=== PATIENT | female | born 1980 | race Caucasian/White ===

== ENCOUNTER 2022-04-14 11:28 | Emergency (ER) | payer MEDICAID, SELFPAY ==
[2022-04-14 11:26] VITALS: BP 136/96; PULSE 75; RESP 18; TEMP 37; O2SAT 98
--- NOTE | 2022-04-14 11:38 | ED.GENADUL_ITS ---
Discharge Plan Disposition Patient Disposition: Home Condition: Stable Discharge Details Clinical Impression: Neuropathy Primary Care Provider: Unknown,Unknown ED Provider: Ian Macedo Home Meds and New Rx's Prescriptions: New gabapentin 600 mg tablet 600 mg PO TID 15 Days Qty: 45 0RF duloxetine [Cymbalta] 60 mg capsule,delayed release(DR/EC) 60 mg PO DAILY 15 Days Qty: 15 0RF No Action trazodone 50 mg Tablet 100 mg PO HS PRN metoprolol tartrate 100 mg Tablet 100 mg PO DAILY duloxetine [Cymbalta] 60 mg Capsule,Delayed Release(Dr/Ec) 60 mg PO DAILY gabapentin 300 mg Tablet 600 mg PO TID folic acid 15 mg Tablet 0.4 mg PO DAILY zolpidem [Ambien] 10 mg Tablet 10 mg PO HS Discharge Instructions Instructions: Peripheral Neuropathy (ED) Medical Decision Making 41-year-old female presents after being released from police custody she was picked up last night while driving home to [place] her car was impounded herself and her medications are in the car she takes gabapentin 600 mg 3 times a day and Cymbalta. Nontoxic atraumatic ambulatory neurologically intact. Will fill prescription for patient's medication as her medications are likely to be impounded through the weekend. Will contact care management team to assist with transportation options HPI General Date/Time Provider Initiated Documentation: 04/14/22 11:31 . HPI Narrative: 41 yr old female history of peripheral neuropathy on gabapentin and Cymbalta presents requesting medication refill administration as she was arrested last night she was driving from [place] to meet somebody, was driving home yesterday evening and was arrested, her car was impounded and her medications and cell phone are still at the police department. They will not be able to be released today and possibly not tomorrow. Related Data Home Medications Medication Instructions Recorded Confirmed duloxetine 60 mg capsule,delayed 60 mg PO DAILY 04/14/22 04/14/22 release (Cymbalta) duloxetine 60 mg capsule,delayed 60 mg PO DAILY 15 days #15 caps 04/14/22 release (Cymbalta) folic acid 15 mg tablet 0.4 mg PO DAILY 04/14/22 04/14/22 gabapentin 300 mg tablet 600 mg PO TID 04/14/22 04/14/22 gabapentin 600 mg tablet 600 mg PO TID 15 days #45 tabs 04/14/22 metoprolol tartrate 100 mg tablet 100 mg PO DAILY 04/14/22 04/14/22 trazodone 50 mg tablet 100 mg PO HS PRN 04/14/22 04/14/22 zolpidem 10 mg tablet (Ambien) 10 mg PO HS 04/14/22 04/14/22 Previous Rx's Medication Instructions Recorded duloxetine 60 mg capsule,delayed 60 mg PO DAILY 15 days #15 caps 04/14/22 release (Cymbalta) gabapentin 600 mg tablet 600 mg PO TID 15 days #45 tabs 04/14/22 Allergies Allergy/AdvReac Type Severity Reaction Status Date / Time No Known Allergies Allergy Unverified 04/14/22 11:29 General Stated Complaint: RX Refill MARKIE: 4 Review of Systems Narrative: Review of Systems Constitutional: negative Eyes: negative ENT: negative Cardiovascular: negative Respiratory: negative Gastrointestinal: negative : negative Musculoskeletal: negative Skin: negative Neurologic: Peripheral neuropathy Psych: negative PFSH All Active Problems (Updated 04/14/22 @ 12:02 by Ian Macedo MD) Neuropathy (Acute) Social History Smoking/Tobacco Use Status: Current every day Tobacco Type: cigarettes Smoking risk assessment performed?: Yes Drug use: Never Substance use type: does not use Do you feel safe at home: Yes Do you feel safe in your relationship?: Yes Exam Narrative Exam Narrative: Physical Examination General: alert, awake, cooperative, resting comfortably, no acute distress HEENT: normocephalic, atraumatic; PERRL, EOM intact, conjunctiva normal; no nasal discharge; moist mucous membranes, oral and pharyngeal mucosa normal, tolerating secretions Neuro: AAOx3, normal speech, moving all extremities; ambulatory without assistance Psych: Appropriate mood and affect Course Vital Signs Vital signs: Vital Signs Temperature 37.0 C 04/14/22 11:26 Pulse 75 04/14/22 11:26 Respiratory Rate 18 04/14/22 11:26 Blood Pressure 136/96 H 04/14/22 11:26 Pulse Oximetry 98 04/14/22 11:26 Temperature 37.0 C 04/14/22 11:26 Temperature Source Skin 04/14/22 11:26 Pulse 75 04/14/22 11:26 Respiratory Rate 18 04/14/22 11:26 Respiratory Effort 04/14/22 11:33 Blood Pressure 136/96 H 04/14/22 11:26 Blood Pressure Position Sitting 04/14/22 11:26 Pulse Oximetry 98 04/14/22 11:26 Oxygen Delivery Method Room Air 04/14/22 11:26 Oxygen Flow Rate 0 04/14/22 11:26 Pain Level 7 04/14/22 11:26 PAWSS Have you Been Recently Intoxicated or Drunk Within the Last 30 days?: Yes Have you Ever Experienced Previous Episodes of Alcohol Withdrawal?: Yes Have you ever Experienced Withdrawal Seizures?: No Have you ever Experienced Delirium Tremens(DT)s?: Yes Have you ever undergone Alcohol Rehabilitation Treatment (i.e, inpt ot outpatient treatment programs)?: No Have you ever Experienced Blackouts?: Yes Have you ever Combined Alcohol with other Downers within the last 90 days?: No Have you ever Combined Alcohol with any other Substance of Abuse during the last 90 days?: No Positive Blood Alcohol level on Presentation? [PCS.BAL]: No Evidence of Increased Autonomic Activity (i.e. HR>120, tremor, sweating, agitation, nausea)?: No Result: 4
[2022-04-14] MEDS: Gabapentin 300 MG CAP 600 MG PO (11:49)
[2022-04-14] MEDS: DULoxetine 30 MG CAP 60 MG PO (11:49)
== END 2022-04-14 12:22 | disposition home or self-care (01) ==
PROVIDERS: Emergency Provider Emergency Medicine
DX: G62.89 Other specified polyneuropathies (principal)
CPT/HCPCS: 99283